=== PATIENT | male | born 1965 | race Two or more races ===

== ENCOUNTER 2020-02-20 19:21 | Inpatient (IN) | payer MEDICAID ==
[~2020-02-20] VITALS: Ht 170.2 cm; Wt 104.9 kg
[2020-02-20] MEDS ORDERED: SODIUM CHLORIDE 0.9% 1,000 ML IV ONE (19:40)
[2020-02-20] MEDS ORDERED: ATROPINE SULFATE 1MG/ML VIAL IV PRN (19:45)
[2020-02-20] MEDS: ATROPINE SULFATE 1MG/10ML SYR IV PRN ×6 (19:50→23:15)
[2020-02-20] MEDS ORDERED: ATROPINE SULFATE 1MG/10ML SYR ONE (19:54)
[2020-02-20 20:10] LABS: BASOPHILS % 0.9 % (0.0-2.0); EOSINOPHILS % 0.8 % (0.0-5.0); HEMATOCRIT. 30.8 % (42.0-52.0); HEMOGLOBIN. 9.9 g/dL (14.0-18.0); LYMPHOCYTES % 10.1 % (20.0-50.0); MEAN CORPUSCULAR HEMOGLOBIN 29.7 pg (28.0-32.0); MEAN CORPUSCULAR VOLUME 92.3 fL (80.0-94.0); MEAN PLATELET VOLUME 10.6 fl (7.4-10.4); MONOCYTES % 8.8 % (2.0-8.0); NEUTROPHILS % 79.4 % (40.0-76.0); PLATELET 217 x1000/uL (130-400); RED BLOOD CELL COUNT 3.34 mill/uL (4.7-6.1); RED CELL DISTRIBUTION WIDTH 16.7 % (11.6-14.6)
[2020-02-20 20:18] LABS: CHLORIDE 109 mEq/L (98-107); PARTIAL THROMBOPLASTIN TIME 30.1 sec (23.4-31.0); PROTHROMBIN TIME 10.9 sec (9.6-11.0)
[2020-02-20 20:24] LABS: ETHANOL BLOOD < 10 mg/dL
[2020-02-20] MEDS ORDERED: INSULIN REGULAR (HUMULIN R) 300UNITS/3ML IV ONE (20:45)
[2020-02-20] MEDS ORDERED: DEXTROSE 50% WATER 50ML SYRINGE IV ONE (20:45)
[2020-02-20] MEDS ORDERED: SODIUM BICARBONATE 8.4% 1 MEQ/ML 50ML SYR IV ONE (20:45)
[2020-02-20] MEDS ORDERED: CALCIUM GLUCONATE 1,000 MG in DEXT 5% WATER 100 ML IV NR (20:45)
[2020-02-20] MEDS: ALBUTEROL (0.083%) 2.5MG/3ML NEB HHN SCH ×3 (21:00→22:00)
[2020-02-20 21:39] LABS: PHOSPHORUS 11.7 mg/dL (2.5-4.9)
[2020-02-20] MEDS ORDERED: SODIUM POLYSTYRENE SULFONATE 15 G/60 ML BOT PO ONE (22:45)
[2020-02-20] MEDS ORDERED: LIDOCAINE HCL 1% 20ML VIAL (Pyxis) INJ ONE (23:56)
[2020-02-20] MEDS ORDERED: HEPARIN 1000 UNITS/ML 10ML ONE (23:56)
[2020-02-21] VITALS (36 sets, daily range): BP systolic 60–140; BP diastolic 26–82
[2020-02-21] MEDS ORDERED: DEXTROSE 50% WATER 50ML SYRINGE IV PRN (00:15)
[2020-02-21] MEDS ORDERED: ALBUMIN HUMAN 25GM/100ML (25%) IV PRN (00:15)
[2020-02-21] MEDS ORDERED: NOREPINEPHRINE 4MG/250ML PMX 250 ML IV PRN (00:15)
[2020-02-21] MEDS ORDERED: NOREPINEPHRINE 4 MG in DEXTROSE 5% WATER 250 ML IV PRN (00:30)
[2020-02-21] MEDS ORDERED: ATROPINE SULFATE 1MG/ML VIAL IV PRN (00:30)
[2020-02-21] MEDS ORDERED: SODIUM CHLORIDE 0.9% 1000ML BAG (SEPSIS BOLUS) IV PRN (00:30)
[2020-02-21] MEDS ORDERED: DOPAMINE 400MG/250ML PREMIX 250 ML IV PRN (00:45)
[2020-02-21] MEDS ORDERED: DOPAMINE 400MG/250ML PREMIX 250 ML IV ONE (00:50)
[2020-02-21] MEDS ORDERED: ATOR20TA MT (01:54)
[2020-02-21] MEDS ORDERED: METO-385 MT (01:54)
[2020-02-21] MEDS ORDERED: ATEN50TA MT (01:54)
[2020-02-21] MEDS ORDERED: HEPARIN SODIUM 1,000 UNIT/1ML VIAL IV NR (02:30)
[2020-02-21 06:07] LABS: BASOPHILS % 0.5 % (0.0-2.0); EOSINOPHILS % 0.4 % (0.0-5.0); HEMOGLOBIN. 9.1 g/dL (14.0-18.0); LYMPHOCYTES % 8.8 % (20.0-50.0); MEAN CORPUSCULAR HEMOGLOBIN 29.9 pg (28.0-32.0); MEAN CORPUSCULAR VOLUME 88.7 fL (80.0-94.0); MEAN PLATELET VOLUME 10.1 fl (7.4-10.4); MONOCYTES % 7.5 % (2.0-8.0); NEUTROPHILS % 82.8 % (40.0-76.0); PLATELET 199 x1000/uL (130-400); RED BLOOD CELL COUNT 3.05 mill/uL (4.7-6.1); RED CELL DISTRIBUTION WIDTH 16.4 % (11.6-14.6)
[2020-02-21] MEDS: BLOOD SUGAR DIAGNOSTIC STRIP TEST SCH ×4 (07:30→20:38)
[2020-02-21 07:54] LABS: PHOSPHORUS 8.4 mg/dL (2.5-4.9)
[2020-02-21] MEDS: INSULIN LISPRO 100 UNITS/ML SUBCUT SCH ×4 (08:00→20:37)
[2020-02-21] MEDS ORDERED: SEVELAMER CARBONATE 800 MG TABLET PO SCH (08:00)
[2020-02-21] MEDS: FOLIC ACID/VITAMIN B COMP W-C TABLET PO SCH (08:42)
[2020-02-21] MEDS: SEVELAMER CARBONATE 800 MG TABLET PO SCH ×3 (08:42→18:35)
[2020-02-21] MEDS: ASPIRIN 81MG TABLET PO SCH (08:42)
[2020-02-21 12:22] LABS: T4 FREE 0.91 ng/dL (0.76-1.46)
[2020-02-21 12:58] LABS: FERRITIN 115 ng/mL (22-322)
[2020-02-21 13:09] LABS: HEPATITIS B SURFACE ANTIGEN NEGATIVE
[2020-02-21 13:38] LABS: HEPATITIS A AB IGM NEGATIVE (NEGATIVE)
[2020-02-21] MEDS ORDERED: ENOXAPARIN 30MG/0.3ML SYR SUBCUT SCH (15:00)
[2020-02-21] MEDS: CEFTRIAXONE 1 G PREMIX 50 ML IV SCH (16:05)
[2020-02-21 16:49] LABS: CREATINE KINASE MB FRACTION 8.2 ng/mL (0.5-3.6)
[2020-02-22] VITALS (48 sets, daily range): BP systolic 88–156; BP diastolic 29–74
[2020-02-22 00:06] LABS: CREATINE KINASE MB FRACTION 6.3 ng/mL (0.5-3.6)
[2020-02-22 06:37] LABS: HEMATOCRIT. 23.6 % (42.0-52.0); HEMOGLOBIN. 7.8 g/dL (14.0-18.0); MEAN CORPUSCULAR VOLUME 90.2 fL (80.0-94.0); MEAN PLATELET VOLUME 10.2 fl (7.4-10.4); PLATELET 171 x1000/uL (130-400); RED BLOOD CELL COUNT 2.62 mill/uL (4.7-6.1); RED CELL DISTRIBUTION WIDTH 16.7 % (11.6-14.6)
[2020-02-22 07:12] LABS: CREATINE KINASE MB FRACTION 5.3 ng/mL (0.5-3.6)
[2020-02-22] MEDS: BLOOD SUGAR DIAGNOSTIC STRIP TEST SCH ×4 (07:30→21:09)
[2020-02-22 07:44] LABS: PHOSPHORUS 9.9 mg/dL (2.5-4.9)
[2020-02-22] MEDS: INSULIN LISPRO 100 UNITS/ML SUBCUT SCH ×4 (08:00→21:17)
[2020-02-22] MEDS: FOLIC ACID/VITAMIN B COMP W-C TABLET PO SCH (08:43)
[2020-02-22] MEDS: SEVELAMER CARBONATE 800 MG TABLET PO SCH ×2 (08:43→17:46)
[2020-02-22] MEDS: ASPIRIN 81MG TABLET PO SCH (08:43)
[2020-02-22] MEDS: ENOXAPARIN 40MG/0.4ML SYR SUBCUT SCH (14:54)
[2020-02-22] MEDS: CEFTRIAXONE 1 G PREMIX 50 ML IV SCH (14:54)
[2020-02-22 17:06] LABS: A/G RATIO 0.8 (0.7-1.7); ALBUMIN 2.7 g/dL (2.9-4.4); ALPHA-1-GLOBULIN 0.3 g/dL (0.0-0.4); ALPHA-2-GLOBULIN 1.1 g/dL (0.4-1.0); BETA GLOBULIN 1.1 g/dL (0.7-1.3); GAMMA GLOBULINS 0.7 g/dL (0.4-1.8); GLOBULIN TOTAL 3.3 g/dL (2.2-3.9); M-SPIKE Not Observed g/dL (Not Observed)
[2020-02-22 17:17] LABS: PLATELET ESTIMATE NORMAL
[2020-02-22] MEDS: EPOETIN ALFA 4000UNITS/ML VIAL SUBCUT SCH (21:17)
[2020-02-23] VITALS: BP 143/63
[2020-02-23 04:00] VITALS: BP 140/64
[2020-02-23] MEDS: BLOOD SUGAR DIAGNOSTIC STRIP TEST SCH ×4 (06:19→21:25)
[2020-02-23] MEDS: INSULIN LISPRO 100 UNITS/ML SUBCUT SCH ×4 (06:21→21:36)
[2020-02-23 07:31] LABS: BASOPHILS % 0.8 % (0.0-2.0); EOSINOPHILS % 3.6 % (0.0-5.0); HEMATOCRIT. 24.3 % (42.0-52.0); HEMOGLOBIN. 8.2 g/dL (14.0-18.0); LYMPHOCYTES % 14.1 % (20.0-50.0); MEAN CORPUSCULAR HEMOGLOBIN 30.2 pg (28.0-32.0); MEAN CORPUSCULAR VOLUME 89.6 fL (80.0-94.0); MEAN PLATELET VOLUME 9.6 fl (7.4-10.4); MONOCYTES % 13.9 % (2.0-8.0); NEUTROPHILS % 67.6 % (40.0-76.0); PLATELET 177 x1000/uL (130-400); RED BLOOD CELL COUNT 2.71 mill/uL (4.7-6.1); RED CELL DISTRIBUTION WIDTH 16.3 % (11.6-14.6)
[2020-02-23 08:00] VITALS: BP 118/43
[2020-02-23 08:23] LABS: PHOSPHORUS 6.7 mg/dL (2.5-4.9)
[2020-02-23] MEDS: ENOXAPARIN 40MG/0.4ML SYR SUBCUT SCH (08:59)
[2020-02-23] MEDS: FOLIC ACID/VITAMIN B COMP W-C TABLET PO SCH (08:59)
[2020-02-23] MEDS: SEVELAMER CARBONATE 800 MG TABLET PO SCH ×3 (08:59→17:40)
[2020-02-23] MEDS: ASPIRIN 81MG TABLET PO SCH (09:00)
[2020-02-23 12:00] VITALS: BP 160/68
[2020-02-23 13:11] LABS: ANTI-MYELOPEROXIDASE AB < 9.0 U/mL (0.0-9.0); ANTI-PROTEINASE 3 ABS 4.9 U/mL (0.0-3.5)
[2020-02-23 16:00] VITALS: BP 133/68
[2020-02-23] MEDS: CEFTRIAXONE 1 G PREMIX 50 ML IV SCH (16:00)
[2020-02-23 20:00] VITALS: BP 134/71
[2020-02-24] VITALS (16 sets, daily range): BP systolic 104–167; BP diastolic 28–91
[2020-02-24 06:16] LABS: EOSINOPHILS % 4.3 % (0.0-5.0); HEMATOCRIT. 25.1 % (42.0-52.0); HEMOGLOBIN. 8.4 g/dL (14.0-18.0); LYMPHOCYTES % 13.3 % (20.0-50.0); MEAN CORPUSCULAR HEMOGLOBIN 29.9 pg (28.0-32.0); MEAN CORPUSCULAR VOLUME 89.9 fL (80.0-94.0); MEAN PLATELET VOLUME 9.5 fl (7.4-10.4); MONOCYTES % 12.3 % (2.0-8.0); NEUTROPHILS % 69.1 % (40.0-76.0); PLATELET 179 x1000/uL (130-400); RED BLOOD CELL COUNT 2.79 mill/uL (4.7-6.1)
[2020-02-24 06:25] LABS: PHOSPHORUS 6.7 mg/dL (2.5-4.9)
[2020-02-24] MEDS: INSULIN LISPRO 100 UNITS/ML SUBCUT SCH ×4 (06:48→21:00)
[2020-02-24] MEDS ORDERED: POTASSIUM CHLORIDE 20MEQ TABLET SR PO NR (06:48)
[2020-02-24] MEDS: BLOOD SUGAR DIAGNOSTIC STRIP TEST SCH ×4 (06:48→21:12)
[2020-02-24] MEDS: SEVELAMER CARBONATE 800 MG TABLET PO SCH ×3 (06:48→16:51)
[2020-02-24] MEDS ORDERED: IODIXANOL 320MG/ML 100 ML BOTTLE IV ONE ×2 (07:31→08:51)
[2020-02-24] MEDS ORDERED: LIDOCAINE HCL 1% 20ML VIAL (Pyxis) INJ ONE (07:31)
[2020-02-24] MEDS ORDERED: FENTANYL CITRATE/PF 50MCG/ML 2ML VIAL ONE (07:37)
[2020-02-24] MEDS ORDERED: MIDAZOLAM HCL 2 MG/2 ML VIAL ONE (07:37)
[2020-02-24] MEDS ORDERED: IOHEXOL-300 100 ML BOTTLE ONE ×2 (08:51→08:55)
[2020-02-24] MEDS ORDERED: ASPIRIN 325MG EC TABLET PO ONE (09:05)
[2020-02-24] MEDS ORDERED: CLOPIDOGREL 75MG TABLET ONE (09:05)
[2020-02-24] MEDS ORDERED: ACETAMINOPHEN 325MG TABLET PO PRN (09:15)
[2020-02-24] MEDS ORDERED: ATROPINE SULFATE 1MG/10ML SYR IV PRN (09:15)
[2020-02-24] MEDS: ASPIRIN 81MG TABLET PO SCH (10:09)
[2020-02-24] MEDS: FOLIC ACID/VITAMIN B COMP W-C TABLET PO SCH (10:10)
[2020-02-24 13:01] LABS: HEPATITIS B SURFACE AB < 3.1 mIU/mL
[2020-02-24] MEDS ORDERED: HEPARIN SODIUM 1,000 UNIT/1ML VIAL IV ONE (13:01)
[2020-02-24 14:12] LABS: ATYPICAL P-ANCA <1:20 titer (Neg:<1:20); CYTOPLASMIC C-ANCA <1:20 titer (Neg:<1:20); PERINUCLEAR P-ANCA <1:20 titer (Neg:<1:20)
[2020-02-24] MEDS: CEFTRIAXONE 1 G PREMIX 50 ML IV SCH ×2 (15:05→17:50)
[2020-02-24 15:12] LABS: CLARITY URINE CLEAR (CLEAR); COLOR URINE YELLOW (YELLOW); KETONES URINE NEGATIVE (NEGATIVE); LEUKOCYTE ESTERASE URINE NEGATIVE (NEGATIVE); NITRITE URINE NEGATIVE (NEGATIVE); OCCULT BLOOD URINE 2+ (NEGATIVE); PH URINE 5.5 (4.5-8.0); PROTEIN URINE 3+ (NEGATIVE); SPECIFIC GRAVITY URINE 1.023 (1.005-1.030); UROBILINOGEN URINE 0.2 E.U./dL (0.2-1.0)
[2020-02-24] MEDS: EPOETIN ALFA 4000UNITS/ML VIAL SUBCUT SCH (21:19)
[2020-02-24] MEDS: METOPROLOL TARTRATE 25MG TABLET PO SCH (21:20)
[2020-02-25] VITALS (30 sets, daily range): BP systolic 105–174; BP diastolic 45–83
[2020-02-25] MEDS: BLOOD SUGAR DIAGNOSTIC STRIP TEST SCH ×4 (05:51→20:37)
[2020-02-25 06:31] LABS: BASOPHILS % 0.8 % (0.0-2.0); EOSINOPHILS % 4.1 % (0.0-5.0); HEMOGLOBIN. 8.1 g/dL (14.0-18.0); LYMPHOCYTES % 10.6 % (20.0-50.0); MEAN CORPUSCULAR HEMOGLOBIN 30.3 pg (28.0-32.0); MEAN CORPUSCULAR VOLUME 89.4 fL (80.0-94.0); MEAN PLATELET VOLUME 9.2 fl (7.4-10.4); MONOCYTES % 11.4 % (2.0-8.0); NEUTROPHILS % 73.1 % (40.0-76.0); PLATELET 199 x1000/uL (130-400); RED BLOOD CELL COUNT 2.68 mill/uL (4.7-6.1); RED CELL DISTRIBUTION WIDTH 15.5 % (11.6-14.6)
[2020-02-25 06:56] LABS: PHOSPHORUS 4.9 mg/dL (2.5-4.9)
[2020-02-25] MEDS: INSULIN LISPRO 100 UNITS/ML SUBCUT SCH ×4 (07:20→20:55)
[2020-02-25] MEDS: SEVELAMER CARBONATE 800 MG TABLET PO SCH ×4 (07:20→17:24)
[2020-02-25] MEDS ORDERED: SODIUM BICARBONATE 4% (2.4MEQ) 5ML VIAL IV ONE (07:41)
[2020-02-25] MEDS ORDERED: LIDOCAINE HCL 1% 20ML VIAL (Pyxis) INJ ONE (07:41)
[2020-02-25] MEDS ORDERED: FENTANYL CITRATE/PF 50MCG/ML 2ML VIAL ONE (08:03)
[2020-02-25] MEDS ORDERED: FENTANYL CITRATE/PF 50MCG/ML 2ML VIAL IV SCH (08:30)
[2020-02-25] MEDS: FOLIC ACID/VITAMIN B COMP W-C TABLET PO SCH (09:02)
[2020-02-25] MEDS: CLOPIDOGREL 75MG TABLET PO SCH (09:02)
[2020-02-25] MEDS: METOPROLOL TARTRATE 25MG TABLET PO SCH (09:03)
[2020-02-25] MEDS: ASPIRIN 81MG TABLET PO SCH (09:03)
[2020-02-25] MEDS ORDERED: DILTIAZEM HCL 5MG/ML 5ML VIAL IV NR (10:30)
[2020-02-25] MEDS ORDERED: DIGOXIN 500MCG/2ML AMP IV NR (10:55)
[2020-02-25] MEDS ORDERED: DILTIAZEM HCL 60MG TABLET PO SCH (12:00)
[2020-02-25] MEDS ORDERED: METOPROLOL TARTRATE 25MG TABLET PO NR (12:15)
[2020-02-25] MEDS ORDERED: AMIODARONE HCL 150 MG in DEXT 5% WATER 100 ML IV ONE (14:15)
[2020-02-25] MEDS ORDERED: AMIODARONE HCL 900 MG in DEXT 5% WATER 482 ML IV SCH (14:30)
[2020-02-25] MEDS: CEFTRIAXONE 1 G PREMIX 50 ML IV SCH (14:55)
[2020-02-25] MEDS: METOPROLOL TARTRATE 50MG TABLET PO SCH (20:36)
[2020-02-26] VITALS (11 sets, daily range): BP systolic 99–174; BP diastolic 46–79
[2020-02-26] MEDS: BLOOD SUGAR DIAGNOSTIC STRIP TEST SCH ×3 (06:02→16:00)
[2020-02-26] MEDS: INSULIN LISPRO 100 UNITS/ML SUBCUT SCH ×3 (07:20→17:20)
[2020-02-26 07:33] LABS: BASOPHILS % 0.9 % (0.0-2.0); EOSINOPHILS % 5.4 % (0.0-5.0); HEMATOCRIT. 24.9 % (42.0-52.0); HEMOGLOBIN. 8.5 g/dL (14.0-18.0); MEAN CORPUSCULAR HEMOGLOBIN 30.1 pg (28.0-32.0); MEAN CORPUSCULAR VOLUME 88.6 fL (80.0-94.0); MEAN PLATELET VOLUME 8.8 fl (7.4-10.4); NEUTROPHILS % 72.7 % (40.0-76.0); PLATELET 201 x1000/uL (130-400); RED BLOOD CELL COUNT 2.81 mill/uL (4.7-6.1); RED CELL DISTRIBUTION WIDTH 15.5 % (11.6-14.6)
[2020-02-26 08:06] LABS: PHOSPHORUS 5.7 mg/dL (2.5-4.9)
[2020-02-26] MEDS: SEVELAMER CARBONATE 800 MG TABLET PO SCH ×3 (08:54→17:37)
[2020-02-26] MEDS: CLOPIDOGREL 75MG TABLET PO SCH (08:55)
[2020-02-26] MEDS: FOLIC ACID/VITAMIN B COMP W-C TABLET PO SCH (08:55)
[2020-02-26] MEDS: ASPIRIN 81MG TABLET PO SCH (08:55)
[2020-02-26] MEDS ORDERED: AMIODARONE HCL 200 MG TABLET PO SCH (09:00)
[2020-02-26] MEDS: METOPROLOL TARTRATE 50MG TABLET PO SCH (09:06)
[2020-02-26] MEDS ORDERED: POTASSIUM CHLORIDE 20MEQ TABLET SR PO NR (10:01)
[2020-02-26] MEDS ORDERED: LIP40 MT (12:23)
[2020-02-26] MEDS ORDERED: CLOP75TA15 PO (12:23)
[2020-02-26] MEDS ORDERED: SEVE800T8 PO (12:23)
[2020-02-26] MEDS ORDERED: METO-539 PO (12:23)
[2020-02-26] MEDS ORDERED: ASPI-1160 PO (12:23)
[2020-02-26] MEDS ORDERED: AMI2 PO (12:25)
[2020-02-26] MEDS ORDERED: NEPVIT PO (12:25)
[2020-02-26] MEDS ORDERED: AMLO10TA80 MT (12:28)
[2020-02-26] MEDS: CEFTRIAXONE 1 G PREMIX 50 ML IV SCH (15:15)
[2020-02-26] MEDS ORDERED: HEPARIN SODIUM 1,000 UNIT/1ML VIAL IV NR ×2 (16:45→17:04)
[2020-02-26] MEDS ORDERED: HEPARIN 5000 UNITS/ML VIAL IV NR (17:01)
== END 2020-02-26 19:52 | disposition home or self-care (01) | DRG 174 ==
LOC: ER 19:21 → EDBEDREQTM 19:59 → 5EST 22:07 → EDBD 22:07 → EDBEDREQSVC 22:12 → EDBEDREQTM 22:12 → EDBEDREQ 22:12 → ENRESERV 23:04 → 5WST 02-22 23:56 → 3WST 02-24 09:17
PROVIDERS: ADMIT Internal Medicine; ATTEND Internal Medicine
PROC: 5A1D70Z Performance of Urinary Filtration, Intermittent, Less than 6 Hours Per Day (ICD-10-PCS; 2020-02-20)
PROC: 05HY33Z Insertion of Infusion Device into Upper Vein, Percutaneous Approach (ICD-10-PCS; principal; 2020-02-21)
PROC: 5A1D70Z Performance of Urinary Filtration, Intermittent, Less than 6 Hours Per Day (ICD-10-PCS; 2020-02-22)
PROC: 027034Z Dilation of Coronary Artery, One Artery with Drug-eluting Intraluminal Device, Percutaneous Approach (ICD-10-PCS; 2020-02-24)
PROC: 4A023N7 Measurement of Cardiac Sampling and Pressure, Left Heart, Percutaneous Approach (ICD-10-PCS; 2020-02-24)
PROC: B2111ZZ Fluoroscopy of Multiple Coronary Arteries using Low Osmolar Contrast (ICD-10-PCS; 2020-02-24)
PROC: B2151ZZ Fluoroscopy of Left Heart using Low Osmolar Contrast (ICD-10-PCS; 2020-02-24)
PROC: 0JH63XZ Insertion of Tunneled Vascular Access Device into Chest Subcutaneous Tissue and Fascia, Percutaneous Approach (ICD-10-PCS; 2020-02-25)
PROC: 02HV33Z Insertion of Infusion Device into Superior Vena Cava, Percutaneous Approach (ICD-10-PCS; 2020-02-25)
PROC: B518ZZA Fluoroscopy of Superior Vena Cava, Guidance (ICD-10-PCS; 2020-02-25)
PROC: 02PYX3Z Removal of Infusion Device from Great Vessel, External Approach (ICD-10-PCS; 2020-02-25)
PROC: 5A1D70Z Performance of Urinary Filtration, Intermittent, Less than 6 Hours Per Day (ICD-10-PCS; 2020-02-26)
DX: I21.4 Non-ST elevation (NSTEMI) myocardial infarction (principal); E11.22 Type 2 diabetes mellitus with diabetic chronic kidney disease; E44.0 Moderate protein-calorie malnutrition; E87.2 Acidosis; E87.8 Other disorders of electrolyte and fluid balance, not elsewhere classified; E83.39 Other disorders of phosphorus metabolism; E87.1 Hypo-osmolality and hyponatremia; D64.9 Anemia, unspecified; N18.6 End stage renal disease; E87.5 Hyperkalemia; I45.10 Unspecified right bundle-branch block; E66.9 Obesity, unspecified; K74.60 Unspecified cirrhosis of liver; E78.5 Hyperlipidemia, unspecified; N17.9 Acute kidney failure, unspecified; D72.810 Lymphocytopenia; I25.10 Atherosclerotic heart disease of native coronary artery without angina pectoris; Z99.2 Dependence on renal dialysis; Z68.36 Body mass index [BMI] 36.0-36.9, adult; Z95.5 Presence of coronary angioplasty implant and graft; Z79.899 Other long term (current) drug therapy; Z03.818 Encounter for observation for suspected exposure to other biological agents ruled out; I13.2 Hypertensive heart and chronic kidney disease with heart failure and with stage 5 chronic kidney disease, or end stage renal disease; I50.23 Acute on chronic systolic (congestive) heart failure; I48.91 Unspecified atrial fibrillation
CPT/HCPCS: 36415; 36558; 36589; 71045; 76770; 76937; 77001; 80048; 80053; 80061; 80320; 81003; 82140; 82550; 82553; 82728; 82962; 83036; 83520; 83540; 83550; 83605; 83735; 83880; 84100; 84145; 84155; 84165; 84439; 84443; 84484; 85025; 85347; 85379; 86160; 86256; 86705; 86706; 86709; 86803; 86850; 86900; 87340; 92928; 93005; 93306; 93458; 93970; 94640; 96374; 99152; 99153; 99291; C1725; C1750; C1752; C1769; C1874; C1887; C1893; J0282; J0461; J0610; J0696; J0885; J1160; J1265; J1642; J1644; J1650; J1815; J2250; J3010; J3490; J7030; J7060; Q9967; G0480; G0500; U0003-CS

== ENCOUNTER 2021-01-29 22:52 | Inpatient (IN) | payer MEDICAID, OTHER ==
[~2021-01-29] VITALS: Ht 157.5 cm; Wt 103.9 kg
[~2021-01-29 22:52] MED LIST: AMI2 PO; AMLO10TA80 MT; ASPI-1160 PO; CLOP75TA15 PO; GLIP5TAB12 PO; LIP40 PO; NEPVIT PO; SEVE800T8 PO
[2021-01-30] MEDS ORDERED: NITROGLYCERIN OINT 1GM/INCH UDPKT TD ONE (00:15)
[2021-01-30 00:34] LABS: BASOPHILS % 0.8 % (0.0-2.0); EOSINOPHILS % 6.7 % (0.0-5.0); HEMATOCRIT. 32.6 % (42.0-52.0); LYMPHOCYTES % 13.4 % (20.0-50.0); MEAN CORPUSCULAR HEMOGLOBIN 31.6 pg (28.0-32.0); MEAN CORPUSCULAR VOLUME 93.6 fL (80.0-94.0); MEAN PLATELET VOLUME 8.3 fl (7.4-10.4); MONOCYTES % 9.2 % (2.0-8.0); NEUTROPHILS % 69.9 % (40.0-76.0); PLATELET 240 x1000/uL (130-400); RED BLOOD CELL COUNT 3.48 mill/uL (4.7-6.1); RED CELL DISTRIBUTION WIDTH 14.1 % (11.6-14.6)
[2021-01-30 00:42] LABS: CHLORIDE 100 mEq/L (98-107)
[2021-01-30] MEDS ORDERED: DOCUSATE SODIUM 100MG CAPSULE PO PRN (09:15)
[2021-01-30] MEDS ORDERED: ONDANSETRON HCL 4MG/2ML INJ IV PRN (09:15)
[2021-01-30] MEDS ORDERED: ACETAMINOPHEN 325MG TABLET PO PRN ×2 (09:15)
[2021-01-30] MEDS ORDERED: CLONIDINE 0.1MG TABLET PO PRN (09:15)
[2021-01-30] MEDS ORDERED: HYDROCODONE/ACETAMINOPHEN 5/325MG TABLET PO PRN (09:15)
[2021-01-30] MEDS ORDERED: IPRATROPIUM/ALBUTEROL 0.5-3(2.5)MG/3ML NEB HHN PRN (09:15)
[2021-01-30] MEDS ORDERED: LORAZEPAM 0.5MG TABLET PO PRN (09:15)
[2021-01-30 09:55] VITALS: BP_SYST 149; BP_SYST 158; BP_DIAS 64
[2021-01-30] MEDS: ASPIRIN 81MG TABLET PO SCH (10:31)
[2021-01-30] MEDS: AMIODARONE HCL 200 MG TABLET PO SCH (10:31)
[2021-01-30] MEDS: CLOPIDOGREL 75MG TABLET PO SCH (10:31)
[2021-01-30 12:00] VITALS: BP 145/70
[2021-01-30] MEDS: OMEPRAZOLE 20MG CAPSULE EXTENDED RELEASE PO SCH (12:11)
[2021-01-30] MEDS: CALCIUM ACETATE 667MG CAPSULE PO SCH ×2 (12:12→17:11)
[2021-01-30 14:00] LABS: HEPATITIS B SURFACE ANTIGEN NEGATIVE
[2021-01-30 14:27] LABS: HEPATITIS A AB IGM NEGATIVE (NEGATIVE)
[2021-01-30 16:00] VITALS: BP 115/49
[2021-01-30] MEDS: ENOXAPARIN 40MG/0.4ML SYR SUBCUT SCH (17:11)
[2021-01-30] MEDS ORDERED: ATORVASTATIN CALCIUM 40MG TABLET PO SCH (21:00)
[2021-01-30] MEDS ORDERED: AMLODIPINE 5MG TABLET PO SCH (21:00)
[2021-01-30 21:52] VITALS: BP 118/64
[2021-01-31] VITALS: BP 120/70
[2021-01-31 04:00] VITALS: BP 118/68
[2021-01-31] MEDS: OMEPRAZOLE 20MG CAPSULE EXTENDED RELEASE PO SCH (07:00)
[2021-01-31 08:18] LABS: BASOPHILS % 0.5 % (0.0-2.0); EOSINOPHILS % 4.9 % (0.0-5.0); HEMATOCRIT. 33.1 % (42.0-52.0); HEMOGLOBIN. 11.3 g/dL (14.0-18.0); LYMPHOCYTES % 7.5 % (20.0-50.0); MEAN CORPUSCULAR HEMOGLOBIN 31.9 pg (28.0-32.0); MEAN CORPUSCULAR VOLUME 93.4 fL (80.0-94.0); MEAN PLATELET VOLUME 8.3 fl (7.4-10.4); MONOCYTES % 7.7 % (2.0-8.0); NEUTROPHILS % 79.4 % (40.0-76.0); PLATELET 211 x1000/uL (130-400); RED BLOOD CELL COUNT 3.54 mill/uL (4.7-6.1); RED CELL DISTRIBUTION WIDTH 13.9 % (11.6-14.6)
[2021-01-31] MEDS ORDERED: REGADENOSON 0.4 MG/5 ML IV SCH (08:30)
[2021-01-31 08:31] LABS: PHOSPHORUS 6.4 mg/dL (2.5-4.9)
[2021-01-31 08:35] LABS: T4 FREE 0.86 ng/dL (0.76-1.46)
[2021-01-31 08:38] VITALS: BP 127/47
[2021-01-31] MEDS: CLOPIDOGREL 75MG TABLET PO SCH (08:50)
[2021-01-31] MEDS: FOLIC ACID/VITAMIN B COMP W-C TABLET PO SCH (08:50)
[2021-01-31] MEDS: AMIODARONE HCL 200 MG TABLET PO SCH (08:50)
[2021-01-31] MEDS: ASPIRIN 81MG TABLET PO SCH (08:50)
[2021-01-31] MEDS ORDERED: MAGNESIUM CITRATE 300ML SOLUTION PO SCH (11:00)
[2021-01-31] MEDS: FISH OIL/OMEGA-3 FATTY ACIDS 1000MG CAPSULE PO SCH ×2 (11:00→21:57)
[2021-01-31 12:00] VITALS: BP 141/64
[2021-01-31] MEDS: METOCLOPRAMIDE HCL 5MG TABLET PO SCH ×2 (12:10→18:03)
[2021-01-31] MEDS ORDERED: CALCIUM ACETATE 667MG CAPSULE PO SCH (12:40)
[2021-01-31] MEDS: CALCIUM ACETATE 667MG CAPSULE PO SCH ×2 (12:40→18:03)
[2021-01-31 16:49] VITALS: BP 136/68
[2021-01-31 17:06] LABS: CREATINE KINASE 63 IU/L (39-308)
[2021-01-31] MEDS: ENOXAPARIN 40MG/0.4ML SYR SUBCUT SCH (18:03)
[2021-01-31 20:00] VITALS: BP 125/58
[2021-01-31] MEDS ORDERED: ATORVASTATIN CALCIUM 40MG TABLET PO SCH (21:00)
[2021-01-31 23:54] LABS: CREATINE KINASE 68 IU/L (39-308)
[2021-01-31 23:55] LABS: CREATINE KINASE MB FRACTION 2.5 ng/mL (0.5-3.6)
[2021-02-01] VITALS: BP 116/50
[2021-02-01 04:00] VITALS: BP 115/52
[2021-02-01] MEDS: METOCLOPRAMIDE HCL 5MG TABLET PO SCH (05:42)
[2021-02-01 06:35] LABS: CHLORIDE 100 mEq/L (98-107)
[2021-02-01 06:40] LABS: BASOPHILS % 0.9 % (0.0-2.0); EOSINOPHILS % 11.2 % (0.0-5.0); HEMATOCRIT. 29.6 % (42.0-52.0); HEMOGLOBIN. 10.4 g/dL (14.0-18.0); LYMPHOCYTES % 21.3 % (20.0-50.0); MEAN CORPUSCULAR HEMOGLOBIN 32.5 pg (28.0-32.0); MEAN CORPUSCULAR VOLUME 92.6 fL (80.0-94.0); MEAN PLATELET VOLUME 8.2 fl (7.4-10.4); MONOCYTES % 9.6 % (2.0-8.0); PLATELET 180 x1000/uL (130-400); RED BLOOD CELL COUNT 3.19 mill/uL (4.7-6.1); RED CELL DISTRIBUTION WIDTH 13.4 % (11.6-14.6)
[2021-02-01 06:51] LABS: CREATINE KINASE 62 IU/L (39-308)
[2021-02-01 06:54] LABS: CREATINE KINASE MB FRACTION 2.1 ng/mL (0.5-3.6)
[2021-02-01 08:00] VITALS: BP 132/54
[2021-02-01] MEDS: FISH OIL/OMEGA-3 FATTY ACIDS 1000MG CAPSULE PO SCH (09:00)
[2021-02-01] MEDS ORDERED: REGADENOSON 0.4 MG/5 ML IV ONE (10:33)
[2021-02-01] MEDS ORDERED: LIP40 PO (10:39)
[2021-02-01] MEDS ORDERED: CALC667C PO (10:39)
[2021-02-01 12:30] VITALS: BP 135/54
[2021-02-01] MEDS: CALCIUM ACETATE 667MG CAPSULE PO SCH ×3 (12:40→17:40)
[2021-02-01] MEDS: FOLIC ACID/VITAMIN B COMP W-C TABLET PO SCH (13:03)
[2021-02-01] MEDS: ASPIRIN 81MG TABLET PO SCH (13:03)
[2021-02-01] MEDS: CLOPIDOGREL 75MG TABLET PO SCH (13:04)
[2021-02-01 16:00] VITALS: BP 126/66
[2021-02-01] MEDS: ENOXAPARIN 40MG/0.4ML SYR SUBCUT SCH (17:00)
[2021-02-01 17:09] VITALS: BP 126/66
== END 2021-02-01 19:44 | disposition home or self-care (01) | DRG 198 ==
LOC: ER 22:52 → 7WST 01-30 05:29 → EDBEDREQ 01-30 05:46 → EDBEDREQTM 01-30 05:46 → ENRESERV 01-30 07:43 → 8WST 01-31 05:40
PROVIDERS: ADMIT Internal Medicine; ATTEND Internal Medicine
PROC: 5A1D70Z Performance of Urinary Filtration, Intermittent, Less than 6 Hours Per Day (ICD-10-PCS; 2021-01-30)
PROC: 5A1D70Z Performance of Urinary Filtration, Intermittent, Less than 6 Hours Per Day (ICD-10-PCS; principal; 2021-02-01)
DX: I24.9 Acute ischemic heart disease, unspecified (principal); J96.00 Acute respiratory failure, unspecified whether with hypoxia or hypercapnia; I13.2 Hypertensive heart and chronic kidney disease with heart failure and with stage 5 chronic kidney disease, or end stage renal disease; E11.22 Type 2 diabetes mellitus with diabetic chronic kidney disease; E11.42 Type 2 diabetes mellitus with diabetic polyneuropathy; N18.6 End stage renal disease; D64.9 Anemia, unspecified; D72.821 Monocytosis (symptomatic); E66.9 Obesity, unspecified; E21.3 Hyperparathyroidism, unspecified; I48.91 Unspecified atrial fibrillation; Z20.822 Contact with and (suspected) exposure to COVID-19; I50.23 Acute on chronic systolic (congestive) heart failure; E78.5 Hyperlipidemia, unspecified; I25.10 Atherosclerotic heart disease of native coronary artery without angina pectoris; I25.2 Old myocardial infarction; Z83.3 Family history of diabetes mellitus; Z95.5 Presence of coronary angioplasty implant and graft; Z99.2 Dependence on renal dialysis; Z79.84 Long term (current) use of oral hypoglycemic drugs; Z79.899 Other long term (current) drug therapy; Z68.41 Body mass index [BMI] 40.0-44.9, adult; Z71.3 Dietary counseling and surveillance; K52.9 Noninfective gastroenteritis and colitis, unspecified
CPT/HCPCS: 36415; 71045; 78452; 80048; 80053; 80061; 82550; 82553; 82962; 83036; 83605; 83880; 84100; 84145; 84439; 84443; 84484; 85025; 85379; 86705; 86709; 86803; 87340; 93005; 93017; 93306; 99285; A9500; J1650; J2785; J8597; U0003; U0005

== ENCOUNTER 2021-02-03 18:01 | Emergency (ER) | payer OTHER ==
[~2021-02-03] VITALS: Ht 157.5 cm; Wt 91.0 kg
[~2021-02-03 18:01] MED LIST changes: +CALC667C PO; -SEVE800T8 PO
[2021-02-03] MEDS ORDERED: SULF1TAB48 PO (18:29)
[2021-02-03] MEDS ORDERED: CEPH500T MT (18:29)
[2021-02-03 19:05] VITALS: BP 170/52
== END 2021-02-03 19:06 | disposition home or self-care (01) ==
LOC: ER 18:07
DX: L03.114 Cellulitis of left upper limb (principal); E11.9 Type 2 diabetes mellitus without complications; E78.00 Pure hypercholesterolemia, unspecified; I10 Essential (primary) hypertension; I25.2 Old myocardial infarction; N28.9 Disorder of kidney and ureter, unspecified
CPT/HCPCS: 99283

== ENCOUNTER 2021-03-17 08:51 | Emergency (ER) | payer MEDICAID, OTHER ==
[~2021-03-17] VITALS: Ht 162.6 cm; Wt 78.0 kg
[~2021-03-17 08:51] MED LIST changes: +CEPH500T MT; +SULF1TAB48 PO
[2021-03-17] MEDS ORDERED: ACETAMINOPHEN WITH CODEINE 300/30MG TABLET PO STA (09:26)
[2021-03-17 09:34] VITALS: BP 176/75
[2021-03-17 10:25] LABS: BASOPHILS % 1.2 % (0.0-2.0); EOSINOPHILS % 2.8 % (0.0-5.0); HEMATOCRIT. 33.3 % (42.0-52.0); HEMOGLOBIN. 11.4 g/dL (14.0-18.0); LYMPHOCYTES % 7.2 % (20.0-50.0); MEAN CORPUSCULAR HEMOGLOBIN 32.4 pg (28.0-32.0); MEAN CORPUSCULAR VOLUME 94.5 fL (80.0-94.0); MEAN PLATELET VOLUME 8.1 fl (7.4-10.4); NEUTROPHILS % 80.8 % (40.0-76.0); PLATELET 281 x1000/uL (130-400); RED BLOOD CELL COUNT 3.53 mill/uL (4.7-6.1); RED CELL DISTRIBUTION WIDTH 14.3 % (11.6-14.6)
[2021-03-17 10:32] LABS: CHLORIDE 97 mEq/L (98-107)
== END 2021-03-17 12:09 | disposition home or self-care (01) ==
LOC: ER 08:51
DX: M79.18 Myalgia, other site (principal); I12.0 Hypertensive chronic kidney disease with stage 5 chronic kidney disease or end stage renal disease; E11.22 Type 2 diabetes mellitus with diabetic chronic kidney disease; N18.6 End stage renal disease; N18.9 Chronic kidney disease, unspecified; E78.00 Pure hypercholesterolemia, unspecified; I25.2 Old myocardial infarction; Z99.2 Dependence on renal dialysis; Z79.82 Long term (current) use of aspirin
CPT/HCPCS: 36415; 80053; 85025; 93005; 99284